=== PATIENT | male | born 1950 | race Caucasian/White ===

== ENCOUNTER 2023-02-03 07:40 | Outpatient (CLI) | payer MEDICARE ==
[2023-02-03 08:36] LABS: #Eosinphils 0.1 10x3/uL (0.0-0.5); #Monocytes 0.5 10x3/uL (0.0-1.1); #Neutrophils 4.8 10x3/uL (1.5-8.4); %Basophils 0.5 % (0.0-2.0); %Eosinophils 1.8 % (0.0-6.0); %Lymphocytes 30.5 % (18.0-47.0); %Monocytes 6.7 % (0.0-10.0); %Neutrophils 59.9 % (40.0-75.0); Hematocrit 40.7 % (38.8-50.0); Mean Corpuscular HGB CONC 34.4 g/dL (32.0-36.0); Mean Corpuscular Hemoglobin 29.4 pg (27.0-33.0); Mean Corpuscular Volume 85.5 fl (81.2-95.1); Platelet Count 176 10x3/uL (150-450); RBC Distribution Width 13.1 % (11.5-14.5); Red Blood Cell (RBC) Count 4.76 10x6/uL (4.32-5.72); White Blood Cell (WBC) Count 7.9 10x3/uL (3.5-10.5)
[2023-02-03 08:52] LABS: Anion Gap 18 mmol/L (10-20); BUN (Urea Nitrogen) 23 mg/dL (8.4-25.7); Calc. Creatinine Clearance 0 mL/min (70-130); Carbon Dioxide 18 mmol/L (23-31); Chloride 107 mmol/L (98-107); Estimated GFR 91; Glucose 234 mg/dL (83-110); Potassium 4.9 mmol/L (3.5-5.1); Sodium 138 mmol/L (136-145)
[2023-02-03 08:53] LABS: Prothrombin Time 11.1 sec (9.5-12.1)
== END 2023-02-03 07:41 | disposition home or self-care (01) ==
LOC: LABBT 07:40
PROVIDERS: ATTEND Orthopaedic Surgery
DX: Z01.818 Encounter for other preprocedural examination (principal); M17.12 Unilateral primary osteoarthritis, left knee
CPT/HCPCS: 80048; 85025; 85610; 87081; 93005; 93010

== ENCOUNTER 2023-02-05 05:40 | Observation (INO) | payer MEDICARE ==
[2023-02-03 08:23] VITALS: BMI 31.4
[2023-02-05] MEDS ORDERED: Tranexamic Acid 1,000 MG/10 ML VIAL ONE (06:09)
[2023-02-05] MEDS ORDERED: Sodium Chloride 0.9% 100 ML ONE ×2 (06:09→06:51)
[2023-02-05] MEDS ORDERED: Vancomycin 1 GM/200 ML (FROZEN) BAG ONE (06:16)
[2023-02-05] MEDS ORDERED: fentaNYL PF 100 MCG/2 ML SYRINGE ONE (06:23)
[2023-02-05] MEDS ORDERED: Midazolam HCl 2 mg/2 ml Vial ONE (06:23)
[2023-02-05] MEDS ORDERED: Dexmedetomidine 200 MCG/2 ML VIAL ONE (06:23)
[2023-02-05] MEDS ORDERED: Bupivacaine 0.25% HCL 30 ML VIAL ONE (06:26)
[2023-02-05] MEDS ORDERED: EPINEPHrine 1 MG/ML AMP ONE (06:26)
[2023-02-05] MEDS ORDERED: CEFAZOLIN 2 GM VIAL ONE (06:51)
[2023-02-05] MEDS ORDERED: Acetaminophen 325 MG TAB PO PRN (06:54)
[2023-02-05] MEDS ORDERED: Zolpidem Tartrate 5 MG TAB PO PRN ×2 (06:54→08:00)
[2023-02-05] MEDS ORDERED: Promethazine HCl 25 MG/ML VIAL IM PRN ×3 (06:54→08:00)
[2023-02-05] MEDS ORDERED: diphenhydrAMINE 25 MG CAP PO PRN (06:54)
[2023-02-05] MEDS ORDERED: Ondansetron PF 4 MG/2 ML Vial IVP PRN ×2 (06:54→08:00)
[2023-02-05] MEDS ORDERED: Ondansetron PF 4 MG/2 ML Vial ONE (07:19)
[2023-02-05] MEDS ORDERED: PROPOFOL 200 MG/20 ML VIAL ONE (07:19)
[2023-02-05] MEDS ORDERED: Glycopyrrolate 0.2 MG/ML 5 ML SYRINGE ONE (07:19)
[2023-02-05] MEDS ORDERED: Ropivacaine 0.5% HCl/PF (150 MG/30 ML VIAL) ONE (07:19)
[2023-02-05] MEDS ORDERED: HYDROmorphone 2 MG/ML VIAL SLOW IVP PRN (07:45)
[2023-02-05] MEDS ORDERED: Ondansetron HCl/PF 4 MG/2 ML Vial IVP PRN (07:45)
[2023-02-05] MEDS ORDERED: fentaNYL 50 mcg/mL 1 mL Vial SLOW IVP PRN (07:57)
[2023-02-05] MEDS ORDERED: Ropivacaine 0.2% 550 ML 550 ML NERVE BLCK SCH (08:00)
[2023-02-05] MEDS ORDERED: HYDROcodone/Acetaminophen 10/325 mg Tablet PO PRN (08:00)
[2023-02-05] MEDS ORDERED: fentaNYL 50 mcg/mL 1 mL Vial ONE ×3 (09:03→10:57)
[2023-02-05] MEDS ORDERED: HYDROmorphone 0.5 MG/0.5 ML SYRINGE ONE ×3 (11:09→13:07)
[2023-02-05] MEDS: CEFAZOLIN 2 GM in Sodium Chloride 0.9% 100 ML IVPB SCH ×2 (14:32→21:56)
[2023-02-05] MEDS: Sodium Chloride 0.9% 1,000 ML IV SCH ×2 (14:32→14:43)
[2023-02-05] MEDS: Ketorolac Tromethamine 30 MG/ML VIAL IVP SCH ×3 (14:33→23:11)
[2023-02-05] MEDS: Ferrous Gluconate 324 MG TAB PO SCH ×2 (14:43→20:38)
[2023-02-05] MEDS: Multivitamin W/ Minerals 1 TAB PO SCH (14:43)
[2023-02-05] MEDS: Aspirin 81 mg Enteric Coated Tablet PO SCH ×2 (14:43→20:38)
[2023-02-05] MEDS: Senokot S 8.6-50 MG TAB PO SCH ×2 (14:44→20:38)
[2023-02-05] MEDS ORDERED: Ketorolac Tromethamine 30 MG/ML VIAL ONE (17:14)
[2023-02-05] MEDS: metFORMIN 500 MG TAB PO SCH (17:22)
[2023-02-05] MEDS: HYDROcodone/Acetaminophen 10/325 mg Tablet PO PRN ×2 (17:23→21:56)
[2023-02-05] MEDS: Amlodipine 5 mg/Benazepril 20 mg CAP PO SCH (20:38)
[2023-02-05] MEDS ORDERED: Tamsulosin HCl 0.4 MG CAP PO SCH (21:00)
[2023-02-06] MEDS: Sodium Chloride 0.9% 1,000 ML IV SCH (03:10)
[2023-02-06] MEDS: Ketorolac Tromethamine 30 MG/ML VIAL IVP SCH (05:25)
[2023-02-06 05:57] LABS: Hematocrit 30.9 % (42.0-52.0); Hemoglobin 10.6 g/dL (14.0-18.0); Mean Corpuscular HGB CONC 34.3 g/dL (32.0-36.0); Mean Corpuscular Hemoglobin 29.9 pg (27.0-31.0); Mean Platelet Volume 12.1 fL (7.4-10.4); Platelet Count 135 10x3/uL (130-400); RBC Distribution Width 13.2 % (11.5-14.5); Red Blood Cell (RBC) Count 3.55 mill/uL (4.70-6.10); White Blood Cell (WBC) Count 10.1 10x3/uL (4.8-10.8)
[2023-02-06] MEDS ORDERED: Glimepiride 2 MG TAB PO SCH (07:30)
[2023-02-06 08:38] VITALS: BP 150/79; TEMP 98
[2023-02-06] MEDS: metFORMIN 500 MG TAB PO SCH (08:46)
[2023-02-06] MEDS: Amlodipine 5 mg/Benazepril 20 mg CAP PO SCH (08:46)
[2023-02-06] MEDS: Aspirin 81 mg Enteric Coated Tablet PO SCH (08:46)
[2023-02-06] MEDS: Ferrous Gluconate 324 MG TAB PO SCH (08:46)
[2023-02-06] MEDS: Multivitamin W/ Minerals 1 TAB PO SCH (08:46)
[2023-02-06] MEDS: Senokot S 8.6-50 MG TAB PO SCH (08:46)
[2023-02-06] MEDS: HYDROcodone/Acetaminophen 10/325 mg Tablet PO PRN (08:55)
[2023-02-06] MEDS ORDERED: Fenofibrate Nanocrystallized 145 MG TAB PO SCH (09:00)
[2023-02-08] MEDS ORDERED: Meloxicam 15 MG TAB PO SCH (09:00)
[2023-02-08] MEDS ORDERED: FLU VACC QS2023(65UP)/MF59C/PF 60 MCG/0.5 ML SYRINGE IM ONE (16:00)
== END 2023-02-06 11:30 | disposition home or self-care (01) ==
LOC: SDC 05:40 → SURG A 06:54
PROVIDERS: ADMIT Orthopaedic Surgery; ATTEND Orthopaedic Surgery
PROC: 0SRD0JZ Replacement of Left Knee Joint with Synthetic Substitute, Open Approach (ICD-10-PCS; principal; 2023-02-05)
DX: M17.12 Unilateral primary osteoarthritis, left knee (principal); I10 Essential (primary) hypertension; E78.00 Pure hypercholesterolemia, unspecified; E11.9 Type 2 diabetes mellitus without complications; Z87.891 Personal history of nicotine dependence; Z79.84 Long term (current) use of oral hypoglycemic drugs; Z79.899 Other long term (current) drug therapy; Z88.6 Allergy status to analgesic agent
CPT/HCPCS: 27447; 73560; 85027; 97110 ×2; 97116; A4306; C1776; J3010; J3370; 36415; J0171; J1170; J1885; J2250; J2405; J2704; J2795; J3490; J7050; S0020

== ENCOUNTER 2023-09-04 14:21 | Outpatient (CLI) | payer MEDICARE ==
[2023-09-04 16:27] LABS: #Basophils 0.07 10x3/uL (0.0-0.2); #Eosinphils 0.16 10x3/uL (0.0-0.5); #Monocytes 0.59 10x3/uL (0.0-1.1); #Neutrophils 6.66 10x3/uL (1.5-8.4); %Basophils 0.7 % (0.0-2.0); %Eosinophils 1.6 % (0.0-6.0); %Lymphocytes 25.3 % (18.0-47.0); %Monocytes 5.8 % (0.0-10.0); Hematocrit 37.8 % (38.8-50.0); Hemoglobin 13.4 g/dL (13.5-17.5); Mean Corpuscular HGB CONC 35.4 g/dL (32.0-36.0); Mean Corpuscular Hemoglobin 29.6 pg (27.0-33.0); Mean Corpuscular Volume 83.4 fl (81.2-95.1); Mean Platelet Volume 12.8 fl (7.4-10.4); Platelet Count 189 10x3/uL (150-450); RBC Distribution Width 13.1 % (11.5-14.5); Red Blood Cell (RBC) Count 4.53 10x6/uL (4.32-5.72); White Blood Cell (WBC) Count 10.1 10x3/uL (3.5-10.5)
[2023-09-04 16:56] LABS: PTT 27.9 sec (22.0-33.0); Prothrombin Time 11.1 sec (9.5-12.1)
[2023-09-04 16:59] LABS: Anion Gap 17 mmol/L (10-20); BUN (Urea Nitrogen) 20 mg/dL (8.4-25.7); Calc. Creatinine Clearance 0 mL/min (70-130); Calcium 9.8 mg/dL (7.8-10.44); Carbon Dioxide 20 mmol/L (23-31); Chloride 103 mmol/L (98-107); Estimated GFR 87; Glucose 238 mg/dL (83-110); Potassium 4.2 mmol/L (3.5-5.1); Sodium 136 mmol/L (136-145)
== END 2023-09-04 14:22 | disposition home or self-care (01) ==
LOC: LABBT 14:21
PROVIDERS: ATTEND Orthopaedic Surgery
DX: Z01.818 Encounter for other preprocedural examination (principal); M17.11 Unilateral primary osteoarthritis, right knee; Z96.651 Presence of right artificial knee joint
CPT/HCPCS: 80048; 85025; 85610; 85730; 87081; 93005; 93010

== ENCOUNTER 2023-09-09 06:48 | Observation (INO) | payer MEDICARE ==
[2023-09-09] MEDS ORDERED: fentaNYL 50 mcg/mL 1 mL Vial ONE ×3 (08:13→14:03)
[2023-09-09] MEDS ORDERED: Bupivacaine PF 0.5% 30 ML VIAL ONE (08:14)
[2023-09-09] MEDS ORDERED: Midazolam HCl 2 mg/2 ml Vial ONE (08:14)
[2023-09-09] MEDS ORDERED: CEFAZOLIN 2 GM VIAL ONE (08:21)
[2023-09-09] MEDS ORDERED: EPINEPHrine 1 MG/ML VIAL ONE (08:21)
[2023-09-09] MEDS ORDERED: Bupivacaine 0.25% HCL 30 ML VIAL ONE (08:21)
[2023-09-09] MEDS ORDERED: Sodium Chloride 0.9% 100 ML ONE ×2 (08:21→08:44)
[2023-09-09] MEDS ORDERED: Tranexamic Acid 1,000 MG/10 ML VIAL ONE (08:44)
[2023-09-09] MEDS ORDERED: Vancomycin (BATCH) 1.5 GM/300 ML BAG ONE (08:44)
[2023-09-09] MEDS ORDERED: fentaNYL 50 mcg/mL 1 mL Vial SLOW IVP PRN (09:08)
[2023-09-09] MEDS ORDERED: HYDROcodone/Acetaminophen 10/325 mg Tablet PO PRN ×2 (09:15)
[2023-09-09] MEDS ORDERED: Ropivacaine 0.2% 550 ML 550 ML NERVE BLCK SCH (09:15)
[2023-09-09] MEDS ORDERED: Ondansetron PF 4 MG/2 ML Vial IVP PRN ×2 (09:15→12:17)
[2023-09-09] MEDS ORDERED: Zolpidem Tartrate 5 MG TAB PO PRN ×2 (09:15→12:17)
[2023-09-09] MEDS ORDERED: Promethazine HCl 25 MG/ML VIAL IM PRN ×2 (09:15→12:17)
[2023-09-09] MEDS ORDERED: Lidocaine 1% PF 5 ML VIAL ONE (10:04)
[2023-09-09] MEDS ORDERED: Ketorolac Tromethamine 30 MG (1 mL) VIAL ONE (10:04)
[2023-09-09] MEDS ORDERED: PROPOFOL 20 ML ONE (10:04)
[2023-09-09] MEDS ORDERED: Ondansetron PF 4 MG/2 ML Vial ONE (10:04)
[2023-09-09] MEDS ORDERED: Dexamethasone 4 mg/ml Vial ONE (10:04)
[2023-09-09] MEDS ORDERED: fentaNYL PF 100 MCG/2 ML SYRINGE ONE ×2 (10:04→12:19)
[2023-09-09] MEDS ORDERED: HYDROmorphone 0.5 MG/0.5 ML SYRINGE ONE ×3 (12:03→13:20)
[2023-09-09] MEDS ORDERED: Acetaminophen 325 MG TAB PO PRN (12:17)
[2023-09-09] MEDS ORDERED: diphenhydrAMINE 25 MG CAP PO PRN (12:17)
[2023-09-09] MEDS ORDERED: hydrALAZINE 20 MG/ML VIAL ONE (13:40)
[2023-09-09] MEDS ORDERED: Pantoprazole DR 40 MG TAB PO PRN (15:42)
[2023-09-09] MEDS: Sodium Chloride 0.9% 1,000 ML IV SCH (16:27)
[2023-09-09] MEDS: Ketorolac Tromethamine 30 MG (1 mL) VIAL IVP SCH (16:27)
[2023-09-09] MEDS: Gabapentin 300 MG CAP PO SCH (16:28)
[2023-09-09] MEDS: oxyCODONE/Acetaminophen 5 mg/325 mg Tablet PO PRN (16:33)
[2023-09-09] MEDS: Tamsulosin HCl 0.4 MG CAP PO SCH ×2 (16:34→20:56)
[2023-09-09 16:54] VITALS: BMI 31.0
[2023-09-09] MEDS ORDERED: Glucagon 1 MG/ML KIT IM PRN (17:01)
[2023-09-09] MEDS ORDERED: Dextrose 50% Abboject 50 ML SYRINGE SLOW IVP PRN (17:01)
[2023-09-09] MEDS ORDERED: Dextrose 5% in Water 1,000 ML IV PRN (17:01)
[2023-09-09] MEDS: CEFAZOLIN 2 GM in Sodium Chloride 0.9% 100 ML IVPB SCH (17:40)
[2023-09-09] MEDS: HumaLOG 300 UNITS/3 ML VIAL SC PRN (17:40)
[2023-09-09] MEDS: metFORMIN 500 MG TAB PO SCH (20:54)
[2023-09-09] MEDS: Amlodipine 5 MG TAB PO SCH (20:55)
[2023-09-09] MEDS: Ferrous Gluconate 324 MG TAB PO SCH (20:56)
[2023-09-09] MEDS: Aspirin 81 mg Enteric Coated Tablet PO SCH (20:56)
[2023-09-09] MEDS: Lisinopril 20 MG TAB PO SCH (20:56)
[2023-09-09] MEDS: Senokot S 8.6-50 MG TAB PO SCH (20:57)
[2023-09-10 06:00] LABS: Hematocrit 30.6 % (42.0-52.0); Hemoglobin 10.5 g/dL (14.0-18.0); Mean Corpuscular HGB CONC 34.3 g/dL (32.0-36.0); Mean Corpuscular Hemoglobin 28.4 pg (27.0-31.0); Mean Corpuscular Volume 82.7 fL (78.0-98.0); Mean Platelet Volume 12.3 fL (7.4-10.4); Platelet Count 161 10x3/uL (130-400); RBC Distribution Width 13.3 % (11.5-14.5)
[2023-09-10] MEDS: Glimepiride 4 MG TAB PO SCH (06:18)
[2023-09-10 08:19] VITALS: BP 147/74; TEMP 98.4
[2023-09-10] MEDS: Fenofibrate Nanocrystallized 145 MG TAB PO SCH (09:19)
[2023-09-10] MEDS: Multivitamin W/ Minerals 1 TAB PO SCH (09:20)
[2023-09-10] MEDS: Gabapentin 300 MG CAP PO SCH (09:20)
[2023-09-10 09:44] LABS: Bacteria/HPF None Seen HPF (None Seen); Bilirubin Negative (Negative); Blood, Urine Trace (Negative); Clarity Clear (Clear); Glucose, Urine (Dipstick) 100 mg/dL (Negative); Ketone, Urine Negative (Negative); Leukocyte Negative Leu/uL (Negative); Nitrite Negative (Negative); Protein, Urine (Dipstick) Negative (Neg-Trace); RBC/HPF 0-3 HPF (0-3); Specific Gravity, Urine 1.009 (1.002-1.036); Squamous Epithelial None Seen HPF (0-3); Urobilinogen Normal mg/dL (Less than 2); WBC/HPF 0-3 HPF (0-3)
== END 2023-09-10 11:00 | disposition home or self-care (01) ==
LOC: SDC 06:48 → SURG A 15:32
PROVIDERS: ADMIT Orthopaedic Surgery; ATTEND Orthopaedic Surgery
PROC: 0SRC0JZ Replacement of Right Knee Joint with Synthetic Substitute, Open Approach (ICD-10-PCS; principal; 2023-09-09)
DX: M17.11 Unilateral primary osteoarthritis, right knee (principal); I25.10 Atherosclerotic heart disease of native coronary artery without angina pectoris; E11.9 Type 2 diabetes mellitus without complications; I10 Essential (primary) hypertension; E78.5 Hyperlipidemia, unspecified; Z79.84 Long term (current) use of oral hypoglycemic drugs; Z88.5 Allergy status to narcotic agent; Z87.891 Personal history of nicotine dependence
CPT/HCPCS: 27447; 64447; 73560; 81001; 82962 ×2; 85027; 87086; 97110 ×2; 97116 ×2; 97530; A4306; C1713; C1776; J0171; J0360; J3010; J3370; 36415; 36416; J0665; J1100; J1170; J1815; J1885; J2250; J2405; J2704; J2795; J3490

== ENCOUNTER 2024-01-15 09:16 | Outpatient (CLI) | payer MEDICARE | END 2024-01-15 09:17 | disposition home or self-care (01) | LOC: SCSMRI 09:16 | PROVIDERS: ATTEND Neurological Surgery | DX: M48.061 Spinal stenosis, lumbar region without neurogenic claudication (principal); M51.369 Other intervertebral disc degeneration, lumbar region without mention of lumbar back pain or lower extremity pain; M47.816 Spondylosis without myelopathy or radiculopathy, lumbar region; M51.35 Other intervertebral disc degeneration, thoracolumbar region; M47.815 Spondylosis without myelopathy or radiculopathy, thoracolumbar region; M51.379 Other intervertebral disc degeneration, lumbosacral region without mention of lumbar back pain or lower extremity pain; M47.817 Spondylosis without myelopathy or radiculopathy, lumbosacral region; M48.07 Spinal stenosis, lumbosacral region; M25.78 Osteophyte, vertebrae; N28.9 Disorder of kidney and ureter, unspecified | CPT/HCPCS: 72148 ==